=== PATIENT | male | born 1995 | race Two or more races ===

== ENCOUNTER 2022-06-24 11:05 | Emergency (ER) | payer OTHER, SELFPAY ==
--- NOTE | ~2022-06-24 | XR_ITS ---
EXAMINATION: XR CHEST CLINICAL INFORMATION: Shortness of breath and cough COMPARISON: None TECHNIQUE: 2 views of the chest were obtained. FINDINGS: No significant abnormality is noted involving the heart, lungs, mediastinum, bony thorax or soft tissues. XR/XR chest 2V IMPRESSION: No acute disease.
[2022-06-24 11:17] VITALS: BP 139/90; PULSE 94; RESP 18; TEMP 36.8; O2SAT 98; BMI 30.7
--- NOTE | 2022-06-24 11:18 | ED.URI ---
HPI - URI/Sore Throat General Chief Complaint: Upper Respiratory Symptoms <MELISSA Chery Last Filed: 06/24/22 11:19> Stated Complaint: cough, cold sweats <MELISSA Chery Last Filed: 06/24/22 11:19> Time Seen by Provider: 06/24/22 13:30 <MELISSA Chery - Last Filed: 06/24/22 11:19> History of Present Illness HPI Narrative: Patient complains of several days of cough body aches runny nose as well as several episodes of diarrhea a day for the last 3 days no vomiting no abdominal pain no shortness of breath <MELISSA Herron Last Filed: 06/24/22 17:22> Related Data Home Medications: Previous Rx's Medication Instructions Recorded loperamide 2 mg tablet 2 mg PO Q4H PRN loose stool #14 06/24/22 (Anti-Diarrheal (loperamide)) tabs <MELISSA Chery Last Filed: 06/24/22 11:19> Allergies/Adverse Reactions: Allergies Allergy/AdvReac Type Severity Reaction Status Date / Time No Known Allergies Allergy Verified 06/24/22 11:20 [No Known Allergies*] <MELISSA Chery Last Filed: 06/24/22 11:19> Review of Systems Review of Systems: No dizziness no weakness no headache no stiff neck no difficulty breathing or swallowing no chest pain no shortness of breath no abdominal pain no nausea or vomiting no dysuria no skin rash <MELISSA Herron Last Filed: 06/24/22 17:22> Yes all other systems are reviewed and are negative <MELISSA Herron - Last Filed: 06/24/22 17:22> FORMERLY [facility], [facility]–1983 Past Medical History Source: nursing notes reviewed <MELISSA Herron Last Filed: 06/24/22 17:22> Social History Social History: Social History Advance Directives: No Advance Directives Information Provided: No <MELISSA Chery Last Filed: 06/24/22 11:19> Physical Exam Vital Signs: Vital Signs: Last Vital Signs Temp 98.3 F 06/24/22 11:17 Pulse 94 06/24/22 11:17 Resp 18 06/24/22 11:17 BP 139/90 H 06/24/22 11:17 Pulse Ox 98 06/24/22 11:17 O2 Del Method 06/24/22 11:17 BMI result Body Mass Index 30.7 <MELISSA Chery - Last Filed: 06/24/22 11:19> Vital Signs: Last Vital Signs Temp 98.3 F 06/24/22 11:17 Pulse 94 06/24/22 11:17 Resp 18 06/24/22 11:17 BP 139/90 H 06/24/22 11:17 Pulse Ox 98 06/24/22 11:17 O2 Del Method 06/24/22 11:17 BMI result Body Mass Index 30.7 <MELISSA Herron - Last Filed: 06/24/22 17:22> General appearance is no acute distress The eyes no redness or discharge The pharynx is clear without redness swelling or exudate mucous membranes are moist Neck is supple Chest clear to auscultation bilateral full symmetric equal breath sounds Heart no murmur Abdomen soft nontender Extremities for range of motion x4 Skin no rashes <MELISSA Herron - Last Filed: 06/24/22 17:22> Course Course Course Narrative: RME - 26 yo otherwise healthy male presenting to the ER with 4 days of worsening dry cough associated with mild SOB & sharp chest pains. Also have cold sweats at home. Multiple family members home sick. VSS and lungs are clear in triage. SpO2 98% CXR and viral swabs ordered. <MELISSA Chery - Last Filed: 06/24/22 11:19> RME - 26 yo otherwise healthy male presenting to the ER with 4 days of worsening dry cough associated with mild SOB & sharp chest pains. Also have cold sweats at home. Multiple family members home sick. VSS and lungs are clear in triage. SpO2 98% CXR and viral swabs ordered. Chest x-ray was normal, serology was negative for flu or COVID Well-appearing patient is given a script for Imodium for his diarrhea, he has Tylenol or Motrin for any aches and pains, likely has a viral syndrome and is very well appearing now and is discharged <MELISSA Herron Last Filed: 06/24/22 17:22> Medical Decision Making Lab Data Labs: Lab Results 06/24/22 06/24/22 Range/Units 11:34 11:34 COVID-19 (KIARA) Negative (Negative) COVID-19 Clin Com See Note Influenza Type A (ERA) Negative (Negative) Influenza Type B (ERA) Negative (Negative) Influenza A & B Note See Note <MELISSA Chery Last Filed: 06/24/22 11:19> Lab Results 06/24/22 06/24/22 Range/Units 11:34 11:34 COVID-19 (KIARA) Negative (Negative) COVID-19 Clin Com See Note Influenza Type A (ERA) Negative (Negative) Influenza Type B (ERA) Negative (Negative) Influenza A & B Note See Note <MELISSA Herron - Last Filed: 06/24/22 17:22> Discharge Plan Discharge Clinical Impression: Acute viral syndrome <MELISSA Chery Last Filed: 06/24/22 11:19> Patient Disposition: Home, Self-Care <MELISSA Chery Last Filed: 06/24/22 11:19> Additional Instructions: Your chest x-ray was normal no pneumonia Testing for flu and COVID were negative Physical exam and vital signs were normal You likely have a viral illness which will pass usually within a week from now Drink plenty of fluids, you can use Imodium as directed for diarrhea Tylenol or Motrin for aches and pains Return any time any worse condition or any concerns <MELISSA Chery - Last Filed: 06/24/22 11:19> Prescriptions: New loperamide [Anti-Diarrheal (loperamide)] 2 mg tablet 2 mg PO Q4H PRN (Reason: loose stool) Qty: 14 0RF Rx Instructions: administer after each loose stool until symptoms controlled; do not exceed 8 mg per 24 hrs <MELISSA Chery Last Filed: 06/24/22 11:19> Stand Alone Forms: Work/School Release <MELISSA Chery Last Filed: 06/24/22 11:19> Interventions: ED Discharge Assessment Last Done: 06/24/22 14:04 <MELISSA Chery Last Filed: 06/24/22 11:19> Discharge Date/Time: 06/24/22 14:05 <MELISSA Chery Last Filed: 06/24/22 11:19>
[2022-06-24 12:11] LABS: COVID-19 Test Negative (Negative); IDNOW Serial# 16C4AD1C; IDNOW Serial# BCCEAD1C; Influenza A Negative (Negative); Influenza B2 Negative (Negative)
== END 2022-06-24 14:05 | disposition home or self-care (01) ==
PROVIDERS: Physician Assistant; Emergency Provider Student in an Organized Health Care Education/Training Program
DX: B34.9 Viral infection, unspecified (principal); M79.10 Myalgia, unspecified site; R05.9 Cough, unspecified; R19.7 Diarrhea, unspecified; Z20.822 Contact with and (suspected) exposure to COVID-19; Z20.828 Contact with and (suspected) exposure to other viral communicable diseases
CPT/HCPCS: 71046; 87502; 87635; 99283

== ENCOUNTER 2023-04-27 10:10 | Emergency (ER) | payer OTHER, SELFPAY ==
--- NOTE | ~2023-04-27 | XR_ITS ---
EXAMINATION: XR CHEST 2 VIEW CLINICAL INFORMATION: Cough, shortness of breath COMPARISON: 06/24/2022 TECHNIQUE: PA and lateral views of the chest obtained. FINDINGS: The lungs are clear. There are no pleural effusions. The cardiomediastinal silhouette is normal. XR/XR chest 2V IMPRESSION: No acute cardiopulmonary disease.
[2023-04-27 10:20] VITALS: BP 142/90; PULSE 105; RESP 19; TEMP 37; O2SAT 97; BMI 31.9
--- NOTE | 2023-04-27 10:57 | ED.GENADULT ---
HPI - General Adult General Chief complaint: Upper Respiratory Symptoms Stated complaint: ?Pneumonia Cough Time Seen by Provider: 04/27/23 10:42 Source: patient Mode of arrival: ambulatory Limitations: no limitations History of Present Illness HPI narrative: Patient is 27-year-old male presenting to the emergency department with complaint of productive cough, sore throat, chills for the past week. Patient reports that he had similar symptoms earlier in the month, was beginning to feel better, then developed symptoms again approximately 1 week ago. He denies fevers. Reports this morning noted some blood tinge to his sputum. Denies any chest pain or palpitations. Denies any dizziness, lightheadedness, syncope. States primary complaint today is his sore throat. MD complaint: Sore throat Onset (ago): day(s) Radiation: non-radiation Severity: moderate Quality: burning Pain Consistency: constant Relieving factors: none Exacerbating factors: eating Associated symptoms: cough and fever/chills Treatments prior to arrival: none Related Data Previous Rx's Medication Instructions Recorded loperamide 2 mg tablet 2 mg PO Q4H PRN loose stool #14 06/24/22 (Anti-Diarrheal (loperamide)) tabs benzonatate 100 mg capsule 100 mg PO TID PRN cough #20 caps 04/27/23 Allergies Allergy/AdvReac Type Severity Reaction Status Date / Time No Known Allergies Allergy Verified 04/27/23 10:20 [No Known Allergies*] Review of Systems Review of Systems: As per HPI. Yes all other systems are reviewed and are negative Constitutional: Constitutional: Reports as per HPI [facility] Social History Social History Advance Directives: No Advance Directives Information Provided: Yes Physical Exam ED Vital Signs: Vital Signs - 24 hr 04/27/23 10:20 Temperature 98.6 F Pulse Rate 105 H Respiratory Rate 19 Blood Pressure 142/90 H Pulse Oximetry 97 Oxygen Delivery Method Room Air BMI result Body Mass Index 31.9 Vital signs have been reviewed and appear to be correct. Blood pressure elevated. Heart rate slightly tachycardic. Respiratory rate normal. Temperature normal. Oxygen saturation normal. Const General: cooperative, healthy appearing and no acute distress Orientation/consciousness: oriented to person, oriented to place, oriented to time and patient oriented x3 Limitations: no limitations HENMT Head: Yes normocephalic and Yes atraumatic Ears: external ears normal, TM's normal bilaterally and EAC's normal General nose exam: Normal external nose present, Normal nasal mucous membranes and turbinates present and Normal septum present Face and sinus: Yes face symmetric Mouth: oropharynx normal and moist mucous membranes Throat: No posterior oropharynx normal (Erythema without edema or exudate, no trismus) and Yes uvula midline Eyes Pupils: Equal, round and reactive pupils present Neck Neck: Yes normal visual inspection and Yes supple Resp Effort & Inspection: normal respiratory effort and able to speak in complete sentences Auscultation: clear to auscultation bilaterally Cardio Rate: regular rate Rhythm: regular rhythm Heart sounds: S1 normal heart sound present and S2 normal heart sound present GI Palpation (GI): Soft to palpation and nontender Auscultation: normoactive bowel sounds General: Yes no CVA tenderness Back/Spine/Pelvis Back: no CVA tenderness Skin General skin exam: elasticity normal and turgor normal Neuro General: oriented to person, oriented to place, oriented to time, patient oriented x3, moves all extremities, no focal motor deficits and CN's II-XI intact bilaterally Cranial nerves: Yes Equal, round and reactive pupils present Cognition (Neuro): normal cognition Extrem General: Yes full ROM, Yes no pedal edema and Yes no calf tenderness Psych Mental Status: mental status grossly normal Affect: normal affect Thought process: Normal thought process present Medical Decision Making Medical Decision Making [facility] Narrative: Patient is 27-year-old male presenting to the emergency department with complaint of productive cough, sore throat, chills for the past week. On exam patient is awake, A+Ox3, VS WNL, afebrile, normal neurological exam without focal deficits, physical exam findings as above. Given reported symptoms and physical exam findings, initial differential includes strep pharyngitis, COVID, flu, RSV, other viral illness, bronchitis, pneumonia. Swabs for COVID, flu, RSV, and strep all negative. X-ray chest notable for no acute abnormalities. My interpretation is in agreement with the radiologist's interpretation. Will discharge patient home with prescription for benzonatate as needed for cough. Instructed patient to alternate Tylenol and ibuprofen as needed for discomfort or fevers. Instructed patient to follow-up with primary care provider. Return precautions discussed at bedside. Patient verbalized understanding and agreement with plan. Differential Diagnosis Differential Diagnoses: The differential diagnosis associated with the presentation includes As per MDM. Lab Data [facility] Lab Attestation statement: I reviewed the patient's lab results. As per [facility]. Labs: Lab Results 04/27/23 04/27/23 Range/Units 10:30 11:18 Influenza Type A (PCR) NEGATIVE (Negative) Influenza Type B (PCR) NEGATIVE (Negative) RSV RNA Qual (PCR) NEGATIVE (Negative) SARS-CoV-2 RNA (RT-PCR) NEGATIVE (Negative) S. pyogenes GrpA ERA Negative (Negative) Independent Interpretation I performed an independent interpretation of an: Plain X-Ray Interpretation: No acute abnormalities on chest x-ray, no evidence of pneumonia Radiology Impression Discussion of test interpretation with radiology: I have reviewed the radiologist's reading. Radiologist Impression: XR/XR chest 2V IMPRESSION: No acute cardiopulmonary disease. External Record Review External record reviewed: Inpatient record, Office record and Outpatient record Prescription Management I considered prescription management with: Other Discharge Plan Discharge Clinical Impression: Viral infection Patient Disposition: Home, Self-Care Instructions: Viral Syndrome (ED) Additional Instructions: You were evaluated in the emergency department today for sore throat and cough. Your Covid, flu, and strep tests were all negative. Your symptoms are likely related to a viral illness which will resolve on its own with time and rest. You should ensure adequate fluid intake, and can use Tylenol 650 mg or ibuprofen 600 mg every 6 hours as needed for fever or discomfort. You are being prescribed benzonatate which you can use as needed for cough every 8 hours. Please follow-up with your primary care provider this week. Return to the emergency department if you develop chest pain, worsening shortness of breath, difficulty swallowing, fever 100.4? F or greater or any other concerning symptoms. Prescriptions: New benzonatate 100 mg capsule 100 mg PO TID PRN (Reason: cough) Qty: 20 0RF No Action loperamide [Anti-Diarrheal (loperamide)] 2 mg tablet 2 mg PO Q4H PRN (Reason: loose stool) Qty: 14 0RF Rx Instructions: administer after each loose stool until symptoms controlled; do not exceed 8 mg per 24 hrs Stand Alone Forms: Work/School Release
[2023-04-27 11:11] LABS: Influenza A PCR NEGATIVE (Negative); Influenza B PCR NEGATIVE (Negative); Resp Syncy Virus RNA Qual PCR NEGATIVE (Negative); SARS COV2 PCR INHOUSE NEGATIVE (Negative)
[2023-04-27 13:01] LABS: IDNOW Serial# 08D9AD1C; Strep A Nucleic Acid Negative (Negative)
== END 2023-04-27 13:18 | disposition home or self-care (01) ==
PROVIDERS: Registered Nurse Emergency; Emergency Provider Emergency Medicine
DX: B34.9 Viral infection, unspecified (principal); J02.9 Acute pharyngitis, unspecified; R05.9 Cough, unspecified; Z20.822 Contact with and (suspected) exposure to COVID-19; Z20.828 Contact with and (suspected) exposure to other viral communicable diseases
CPT/HCPCS: 0241U; 71046; 87651; 99282; 99283

== ENCOUNTER 2024-02-15 15:21 | Emergency (ER) | payer SELFPAY ==
--- NOTE | ~2024-02-15 | XR_ITS ---
EXAMINATION: XR ANKLE, RIGHT CLINICAL INFORMATION: Fall. COMPARISON: None available. TECHNIQUE: Three views of the right ankle. FINDINGS: No fracture. Alignment is anatomic. No erosions. Joint spaces are maintained. Soft tissues are normal. XR/XR ankle RT min 3V IMPRESSION: Normal right ankle. Electronically signed by: Parish Mike MD 02/15/2024 04:45 PM EDT
--- NOTE | ~2024-02-15 | XR_ITS ---
EXAMINATION: Right fourth finger CLINICAL INFORMATION: Trauma. COMPARISON: None available. TECHNIQUE: Frontal view of right hand. 2 coned-down views of the right fourth finger FINDINGS: The bones and soft tissues are normal. No fracture. Alignment is anatomic. Joint spaces are maintained. XR/XR finger RT min 2V IMPRESSION: Normal finger radiographs. Electronically signed by: Parish Mike MD 02/15/2024 04:44 PM EDT RP
[2024-02-15 15:25] VITALS: BP 134/63; PULSE 77; RESP 17; TEMP 36.6; O2SAT 99; BMI 33.8
--- NOTE | 2024-02-15 15:25 | ED.GENADULT ---
HPI - General Adult General Chief complaint: Extremity Injury, Lower Stated complaint: Ankle injury Time Seen by Provider: 02/15/24 15:30 Source: patient and RN notes reviewed Mode of arrival: ambulatory Limitations: no limitations History of Present Illness ED Provider: Ayala Staley PA-C HPI narrative: This is a 28-year-old male presents emergency department with complaints of right ankle pain x 2 days. Patient states that he was playing basketball and inverted his right ankle. He states that he has been unable to bear weight on his right ankle secondary to pain since the injury. He denies previous injury to his right ankle in the past. He also states that he injured his left 4th digit while playing basketball, he is unsure how this happened. He is able to move his fingers without difficulty. Denies any fevers, chills, chest pain or shortness for breath. He denies hitting his head or loss of consciousness during this injury. No other complaints or concerns at this time. MD complaint: Right ankle pain Onset (ago): day(s) Quality: aching Pain Consistency: constant Relieving factors: rest Exacerbating factors: movement Associated symptoms: denies other symptoms Related Data Previous Rx's ?Medication ?Instructions ?Recorded loperamide 2 mg tablet 2 mg PO Q4H PRN loose stool #14 06/24/22 (Anti-Diarrheal (loperamide)) tabs benzonatate 100 mg capsule 100 mg PO TID PRN cough #20 caps 04/27/23 ibuprofen 600 mg tablet 600 mg PO Q6H PRN pain #30 tabs 02/15/24 Allergies Allergy/AdvReac Type Severity Reaction Status Date / Time No Known Allergies Allergy Verified 02/15/24 15:26 [No Known Allergies*] Review of Systems Review of Systems: Yes all other systems are reviewed and are negative Constitutional: Constitutional: Reports as per [facility] Past Medical History Attestation statement: The following information was validated with the patient. Social History Social History Advance Directives: No Advance Directives Information Provided: No Physical Exam ED Vital Signs: Vital Signs - 24 hr 02/15/24 15:25 02/15/24 16:55 02/15/24 18:25 Temperature 98 F 97.8 F 97.8 F Pulse Rate 77 60 60 Respiratory Rate 17 16 16 Blood Pressure 134/63 108/58 L 108/58 L Pulse Oximetry 99 96 96 Oxygen Delivery Method Room Air Room Air Room Air BMI result Body Mass Index 33.8 Const General: cooperative, comfortable and no acute distress Orientation/consciousness: patient oriented x3 Limitations: no limitations HENMT Head: Yes normal to inspection, Yes normocephalic and Yes atraumatic Ears: hearing grossly normal bilaterally General nose exam: Normal external nose present Face and sinus: Yes normal facial exam Mouth: Normal oral and palatal mucosa present, oropharynx normal and moist mucous membranes Throat: Yes posterior oropharynx normal Eyes General: appearance normal, both eyes and all related structures Eyelids: Yes eyelids normal Conjunctivae: conjunctivae normal Sclerae: sclerae normal Pupils: Equal, round and reactive pupils present EOM: EOMs intact bilaterally Neck Neck: Yes normal visual inspection, Yes full ROM and Yes no lymphadenopathy Lymphatic: no lymphadenopathy noted Chest Chest palpation & inspection: normal inspection of the chest Resp Effort & Inspection: normal respiratory effort and able to speak in complete sentences Cardio Rate: regular rate Rhythm: regular rhythm GI Inspection: Yes normal to inspection Skin General skin exam: no rashes or lesions noted Trauma: no lacerations or abrasions Wounds: no wounds Neuro General: patient oriented x3 and moves all extremities Cranial nerves: Yes Equal, round and reactive pupils present Extrem Other: Right ankle with tenderness palpation along the medial and lateral malleolus, with moderate edema noted, no overlying skin changes, abrasions, or open. Strong DP pulse. Full range of motion of the ankle joint without difficulty. Fifth metatarsal is nontender. Left fourth digit with mild ecchymosis seen on the palmar aspect of the PIP, full range of motion of the digit without difficulty. Able to oppose thumb to all digits without difficulty. Able to make a fist. Strong radial pulse. General: Yes normal to inspection Right upper extremity: normal to inspection Left upper extremity: normal to inspection Left lower extremity: normal to inspection Course Course Course Narrative: RME, this is a rapid medical exam performed by Akira Mcfadden please refer to primary provider for complete H&P- 28 year old male presents for evaluation of right ankle and finger pain after falling while playing basketball 2 days ago. Plan for x-rays Medical Decision Making Medical Decision Making [facility] Narrative: This is a 28-year-old male who presents emergency department with complaints of right ankle pain x 2 days. On arrival, vital signs within normal limits. Patient has tenderness palpation along the medial and lateral malleolus. Full range of motion of the joint without difficulty. Differential diagnoses include sprain, strain, contusion, fracture. Less likely septic arthritis, compartment syndrome. X-ray was obtained, revealing no acute bony abnormalities. Discussed findings with patient and how his symptoms are consistent with a sprain. Patient given Domo wrap and crutches. Given referral to Orthopedics. Finger x-ray also was obtained, no bony abnormality seen. Discussed findings with patient. Given return precautions. Patient stable for discharge. Differential Diagnosis Differential Diagnoses: The differential diagnosis associated with the presentation includes Fracture, contusion, sprain, strain Radiology Impression Discussion of test interpretation with radiology: I have reviewed the radiologist's reading. Radiologist Impression: XR/XR finger RT min 2V IMPRESSION: Normal finger radiographs. Electronically signed by: Parish Mike MD 02/15/2024 04:44 PM EDT RP Dictated By: Parish Mike MD Signed By: <Electronically signed by Parish Mike MD in OV>'' XR/XR ankle RT min 3V IMPRESSION: Normal right ankle. Electronically signed by: Parish Mike MD 02/15/2024 04:45 PM EDT RP Dictated By: Parish Mike MD Signed By: <Electronically signed Discharge Plan Discharge Clinical Impression: Ankle sprain and strain, Finger pain, left Patient Disposition: Home, Self-Care Instructions: Ankle Sprain (ED), R.I.C.E. Treatment (ED) Additional Instructions: You were seen in the emergency department for right ankle pain. Your x-ray does not show any fractures. Please rest, ice, elevate, and use Domo wrap as well as crutches as needed for pain Alternate between ibuprofen and Tylenol as needed for pain. If you continue to have pain and symptoms in your ankle, you can follow-up with Orthopedics, call to make an appointment. You should also follow-up with a primary care physician. If any new or worsening symptoms occur including but not limited to worsening pain, chest pain, shortness of breath, please return for re-evaluation. Prescriptions: New ibuprofen 600 mg tablet 600 mg PO Q6H PRN (Reason: pain) Qty: 30 0RF No Action loperamide [Anti-Diarrheal (loperamide)] 2 mg tablet 2 mg PO Q4H PRN (Reason: loose stool) Qty: 14 0RF Rx Instructions: administer after each loose stool until symptoms controlled; do not exceed 8 mg per 24 hrs benzonatate 100 mg capsule 100 mg PO TID PRN (Reason: cough) Qty: 20 0RF Referrals: [facility] [Provider Group] Stand Alone Forms: Work/School Release Interventions: ED Discharge Assessment Last Done: 02/15/24 18:25 Discharge Date/Time: 02/15/24 18:25 Print Language: [place]
[2024-02-15 16:55] VITALS: BP 108/58; PULSE 60; RESP 16; TEMP 36.6; O2SAT 96
[2024-02-15 18:25] VITALS: BP 108/58; PULSE 60; RESP 16; TEMP 36.6; O2SAT 96
== END 2024-02-15 18:25 | disposition home or self-care (01) ==
PROVIDERS: Emergency Provider Emergency Medicine
DX: S93.401A Sprain of unspecified ligament of right ankle, initial encounter (principal); S60.042A Contusion of left ring finger without damage to nail, initial encounter; M25.571 Pain in right ankle and joints of right foot; M79.641 Pain in right hand; X58.XXXA Exposure to other specified factors, initial encounter; Y93.67 Activity, basketball; Y92.310 Basketball court as the place of occurrence of the external cause; Y99.8 Other external cause status
CPT/HCPCS: 73140; 73610; 99282; 99283

== ENCOUNTER 2024-03-10 08:09 | Outpatient (AMB) | payer MEDICAID, SELFPAY ==
--- NOTE | 2024-03-10 08:20 | A.OFFVIS_ITS ---
Vital Signs 03/10/24 08:27 Height 5 ft 5 in Weight 203 lb BMI 33.8 Intake Visit Reasons: New Pt - Right Ankle Sprain, DOI 02/13/24 Intake Note: Kendall is a 28 year old male who presents today for a evaluation of his right ankle sprain, DOI 02/13/24. Patient reports he was playing basketball and inverted his right ankle. He was seen at [facility] where xrays were taken and r eferred to orthopedics. He states that he recently twisted his ankle at work. He has pain and pressure on the lateral aspect of ankle and describes his crzu as a pinching sensation. Denies numbness or tingling. Finds relief with icing. Allergies No Known Allergies [No Known Allergies*] Allergy (Verified 03/10/24 08:24) HPI HPI New Pt - Right Ankle Sprain, DOI 02/13/24: Details: 28-year-old male who presents in the office today, as a new patient, for an evaluation of right ankle pain and edema. The patient presented to the [facility] on 02/15/24 with the complaint of right ankle pain ongoing for 2 days. He reported he inverted his right ankle when playing basketball. X-rays of the right ankle were obtained. He was recommended to rest, ice, and use KELSI wrap as well as crutches as needed. He was advised to alternate between OTC ibuprofen and Tylenol PRN for pain relief. While in the office today, the patient confirms his right ankle injury, which occurred on 02/13/24 when playing basketball. He reports he recently twisted his right ankle at work. He mentions pain and pressure on the lateral aspect of the right ankle. He describes his pain as a ?pinching? sensation. Patient has tried ice with some relief. He denies any numbness or tingling. [facility] Social History (Updated 03/10/24 @ 08:25 by BESSY Rios) Patient Tobacco Use Status: Current everyday Tobacco user Current occupational status: employed Current occupation: computer engineer Review of Systems Const All systems reviewed & are unremarkable except as noted in HPI and below Physical Exam Vital Signs: BMI result Body Mass Index 33.8 Const General: cooperative and no acute distress Orientation/consciousness: patient oriented x3 Resp Effort & Inspection: normal respiratory effort and able to speak in complete sentences Cardio Peripheral pulses: Peripheral pulses 2+ throughout Skin General skin exam: no rashes or lesions noted Neuro General: patient oriented x3 Extrem Other: Right ankle/foot: Normal to inspection. No ecchymosis, erythema, or edema. The patient is able to demonstrate dorsiflexion, plantar flexion, pronation and supination. Tenderness to palpation along the medial malleolus. Negative anterior drawer. Sensation intact. Pedal pulse intact. Assessment & Plan Assessment & Plan (1) Right ankle sprain: Code(s): S93.401A - Sprain of unspecified ligament of right ankle, initial encounter Category: Medical Plan Mr. Stratton is a 28-year-old male who presents in the office today, as a new patient, for an evaluation of right ankle pain and edema. The patient presented to the [facility] on 02/15/24 with the complaint of right ankle pain ongoing for 2 days. He reported he inverted his right ankle when playing basketball. He also injured his left fourth finger. X-rays of the right ankle were obtained. He was recommended to rest, ice, and use KELSI wrap as well as crutches as needed. He was advised to alternate between OTC ibuprofen and Tylenol PRN for pain relief. While in the office today, the patient confirms his right ankle injury which occurred on 02/13/24 when playing basketball. He reports he recently twisted his right ankle at work. He mentions pain and pressure on the lateral aspect of the right ankle. He describes his pain as a ?pinching? sensation. Patient has tried ice with some relief. He denies any numbness or tingling. The patient was placed in a tall walking boot, off the shelf. He will remain in the boot for no more than two weeks. I have placed a referral to physical therapy to work on ROM and strengthening. 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 Follow up will be in 6 weeks, or sooner if needed. X-rays of the right ankle, obtained on 02/15/24, revealed: No fracture. Alignment is anatomic. No erosion. Joint spaces are maintained. Soft tissues are normal. Orders: Orders PT Evaluation and Treatment Today S93.401A - Sprain of unspecified ligament of right ankle, initial encounter Patient Instructions: Scribed by Ana Guillen, medical record administrator, for Kyara Barlow PA-C on 03/10/24 at 8:36 am EST. Coding Level of Care Code New Pt Level 3 (97234) Diagnoses Right ankle sprain S93.401A
[2024-03-10 08:27] VITALS: BMI 33.8
== END 2024-03-10 08:45 | disposition home or self-care (01) ==
PROVIDERS: Visit Provider Physician Assistant
DX: S93.401A Sprain of unspecified ligament of right ankle, initial encounter (principal)
CPT/HCPCS: 99203

== ENCOUNTER → 2024-03-10 08:09 | Outpatient (BNVA) | payer MEDICAID, SELFPAY | PROVIDERS: Visit Provider Physician Assistant | DX: S93.401A Sprain of unspecified ligament of right ankle, initial encounter (principal); X58.XXXA Exposure to other specified factors, initial encounter; Y93.9 Activity, unspecified; Y92.9 Unspecified place or not applicable; Y99.9 Unspecified external cause status | CPT/HCPCS: 99212 ==